=== PATIENT | male | born 1995 | race Caucasian/White ===

== ENCOUNTER 2023-08-03 12:00 | Emergency (ER) | payer SELFPAY ==
[~2023-08-03] VITALS: Ht 175.3 cm; Wt 65.0 kg
[2023-08-03 12:12] VITALS: O2SAT 97
[2023-08-03 13:03] LABS: BASOPHILS % 0.3 % (0.0-2.0); EOSINOPHILS % 0.7 % (0.0-5.0); HEMOGLOBIN. 14.9 g/dL (14.0-18.0); MEAN CORPUSCULAR HEMOGLOBIN 30.3 pg (28.0-32.0); MEAN CORPUSCULAR HGB CONC 33.8 g/dL (31.0-37.0); MEAN CORPUSCULAR VOLUME 89.5 fL (80.0-94.0); MEAN PLATELET VOLUME 8.2 fl (7.4-10.4); MONOCYTES % 4.8 % (2.0-8.0); NEUTROPHILS % 71.2 % (40.0-76.0); PLATELET 287 x1000/uL (130-400); RED BLOOD CELL COUNT 4.92 mill/uL (4.7-6.1); RED CELL DISTRIBUTION WIDTH 12.9 % (11.6-14.6); WHITE BLOOD COUNT 9.7 x1000/uL (4.5-11.0)
[2023-08-03] MEDS ORDERED: LORAZEPAM 2MG/ML CPJ IV ONE (14:00)
[2023-08-03 15:19] LABS: ALANINE AMINOTRANSFERASE 17 IU/L (10-49); ALBUMIN 4.3 g/dL (3.2-4.8); ASPARTATE AMINOTRANSFERASE 26 IU/L (<34); BILIRUBIN TOTAL 0.6 mg/dL (0.1-1.0); CALCIUM 9.4 mg/dL (8.7-10.4); CARBON DIOXIDE 28 mEq/L (21-32); CHLORIDE 106 mEq/L (98-107); CREATININE 0.8 mg/dL (0.6-1.3); GLUCOSE 91 mg/dL (70-105); PROTEIN TOTAL 7.1 g/dL (6.0-8.3); SODIUM 141 mEq/L (136-145); UREA NITROGEN BLOOD 10 mg/dL (9-23)
[2023-08-03 15:24] LABS: ETHANOL BLOOD < 10 mg/dL (<10)
[2023-08-03 18:47] VITALS: BP 107/72; PULSE 76; RESP 18; TEMP 98.7
[2023-08-03] MEDS ORDERED: LEVETIRACETAM 500MG PREMIX 100 ML IV ONE ×2 (19:15)
[2023-08-03] MEDS ORDERED: KEPP500 MT (19:50)
== END 2023-08-03 21:05 | disposition home or self-care (01) ==
LOC: ER 12:00
DX: R56.9 Unspecified convulsions (principal)
CPT/HCPCS: 80053; 80320; 83605; 85025; 36415; 70450; 96365; 96375; 99285; J1953; J2060; Z7610; G0480